=== PATIENT | male | born 1975 | race Asian ===

== ENCOUNTER 2017-06-26 19:38 | Emergency (ER) | payer OTHER ==
[2017-06-26 22:03] LABS: INFLUENZA A PATIENT NEGATIVE (NEGATIVE); INFLUENZA B PATIENT NEGATIVE (NEGATIVE); OBC FLU VALID
[2017-06-27 08:57] LABS: NEGATIVE OBC STREP NEG; POSITIVE OBC STREP POS
== END 2017-06-26 22:31 | disposition home or self-care (01) ==
LOC: ER 19:38
DX: J06.9 Acute upper respiratory infection, unspecified (principal); L30.9 Dermatitis, unspecified; Z87.891 Personal history of nicotine dependence
CPT/HCPCS: 87070; 87804; 87804-59; 87880; 99284

== ENCOUNTER 2019-12-27 15:55 | Emergency (ER) | payer OTHER ==
[~2019-12-27] VITALS: Ht 160 cm; Wt 63.6 kg
[~2019-12-27 15:55] MED LIST: CLIN150C14 PO; TRIA15OI TP
[2019-12-27 17:28] VITALS: BP 160/79
[2019-12-27] MEDS ORDERED: LIDO:MAALOX 1:1 20 ML SINGLE DOSE. ONE (17:34)
[2019-12-27] MEDS ORDERED: LIDO:MAALOX 1:1 20 ML SINGLE DOSE. SWSW ONE (17:45)
--- NOTE | 2019-12-27 17:55 | PHYS DOC ---
Past Medical History Past Medical History: No Pertinent History Past Surgical History: No Surgical History Smoking Status: Former Smoker Alcohol Use: None Drug Use: None General Adult EDM: Chief Complaint: ABDOMINAL PAIN HPI: HPI: Patient is a 44 year old male who presents to the emergency department with co mplaints of epigastric abdominal pain, nausea, and a sore throat after taking Flagyl today. Patient was seen at yesterday and diagnosed with having anxiety. A few days prior to that he was seen at and he was diagnosed with constipation and diverticulitis. Patient states that he has been taking Flagyl and MiraLAX that were prescribed to him for those conditions. He denies any chest pain, shortness of breath, vomiting, diarrhea, hematuria, dysuria, body aches, fatigue, fever, or cough. He reports that he feels nauseated after taking the Flagyl. Patient states that his last bowel movement was this morning. He denies any medical or surgical history Review of Systems: Review of Systems: Constitutional: Denies fever or chills. [] HENT: See HPI Respiratory: Denies cough or shortness of breath. [] Cardiovascular: Denies chest pain or edema. [] GI: See HPI : Denies dysuria. [] Musculoskeletal: Denies back pain or joint pain. [] Integument: Denies rash. [] Neurologic: Denies headache, Psychiatric: Denies depression or anxiety. [] Heart Score: Risk Factors: Risk Factors: DM, Current or recent (<one month) smoker, HTN, HLP, family history of CAD, obesity. Risk Scores: Score 0 - 3: 2.5% MACE over next 6 weeks - Discharge Home Score 4 - 6: 20.3% MACE over next 6 weeks - Admit for Clinical Observation Score 7 - 10: 72.7% MACE over next 6 weeks - Early Invasive Strategies Current Medications: Current Medications Medications (Trade) Dose Ordered Sig/Yonny Start Time Stop Time Status Last Admin Dose Admin Multi-Ingredient Mouthwash/Gargle (Gi Cocktail) 20 ml STK-MED ONCE 12/27/19 17:34 12/27/19 17:34 DC Allergies: Allergies: Allergies Coded Allergies Type Severity Reaction Last Updated Verified No Known Drug Allergies 06/26/17 No Physical Exam: PE: Constitutional: Well developed, well nourished, no acute distress, non-toxic appearance. [] HENT: Normocephalic, atraumatic, bilateral external ears normal, nose normal. [] Eyes: PERRLA, EOMI, conjunctiva normal, no discharge. [] Neck: Normal range of motion, no stridor. [] Cardiovascular:Heart rate regular rhythm Lungs & Thorax: Respirations even and unlabored, no retractions, no respiratory distress, lungs CTA Abdomen: soft, no rebound tenderness, no guarding, epigastric tenderness to palpation Skin: Warm, dry, no erythema, no rash. [] Extremities: No cyanosis, ROM intact, no edema. [] Neurologic: Alert and oriented X 3, no focal deficits noted. [] Psychologic: Affect normal, judgement normal, mood normal. [] Current Patient Data: Vital Signs: Vital Signs Date Time Temp Pulse Resp B/P (MAP) Pulse Ox O2 Delivery O2 Flow Rate FiO2 12/27/19 17:28 98.5 94 20 160/79 (106) 100 Room Air 98.5 EKG: EKG: [] Radiology/Procedures: Radiology/Procedures: [] Course & Med Decision Making: Course & Med Decision Making Pertinent Labs and Imaging studies reviewed. (See chart for details) Patient is a 44-year-old male who presents to the emergency department. Patient only speaks Sinhala therefore the [employer] chief green officer line was used to discuss with the patient. The patient was given a GI cocktail and reported feeling better after the medication. The patient declined any further evaluation and treatment. The patient stated he wanted to go home after taking the medication and feeling better. I advised the patient that he needs to take the Flagyl with food and I recommend that he eats a bland diet, avoids alcohol, spicy foods, and acidic foods. Encouraged the patient to follow-up with his primary care doctor. Return to the emergency room if symptoms worsen. Patient verbalized an understanding of home care, medications, follow-up, and return to ED instructions and was in agreement with the plan of care. [] Dragon Disclaimer: Dragon Disclaimer: This electronic medical record was generated, in whole or in part, using a voice recognition dictation system. Departure Departure Impression: Primary Impression: Epigastric pain Additional Impression: Nausea alone Disposition: HOME, SELF-CARE Condition: STABLE Referrals: FAINA MARIE MD (PCP) Patient Instructions: Nausea, Adult, [id number] Additional Instructions: Do not take your antibiotic on an empty stomach. I recommend that you follow a bland diet. Follow-up with your primary care doctor for reevaluation in 1 to 2 days, return to the ER if symptoms worsen. Justicifation of Admission Dx: Justifications for Admission: Justification of Admission Dx: N/A ROCIO MURPHY APRN Dec 27, 2019 17:55
== END 2019-12-27 18:00 | disposition home or self-care (01) ==
LOC: ER 15:55
DX: R10.13 Epigastric pain (principal); R11.0 Nausea; Z87.891 Personal history of nicotine dependence
CPT/HCPCS: 99282

== ENCOUNTER 2019-12-29 00:35 | Emergency (ER) | payer OTHER ==
[~2019-12-29] VITALS: Ht 154.9 cm; Wt 59.1 kg
[2019-12-29 01:24] LABS: BILIRUBIN,URINE NEGATIVE (NEG); CLARITY,URINE CLEAR; COLOR,URINE YELLOW; NITRITE,URINE NEGATIVE (NEG); PH,URINE 6.5 (<5.0-8.0); PROTEIN,URINE NEGATIVE (NEG-TRACE); UROBILINOGEN,URINE 0.2 mg/dL (0.2 mg/dL)
[2019-12-29] MEDS: IV NORMAL SALINE 1000ML BAG 1,000 ML IV SCH (01:31)
[2019-12-29 01:32] LABS: BACTERIA,URINE 0 /HPF (0-FEW); RBC,URINE 0 /HPF (0-2); WBC,URINE OCC /HPF (0-4)
[2019-12-29 01:33] LABS: SQUAMOUS EPITHELIAL CELL,UR OCC /LPF
[2019-12-29 01:38] LABS: BASO % 1 % (0-3); EOS # 0.3 x10^3/uL (0.0-0.7); EOS % 3 % (0-3); HEMATOCRIT 39.4 % (39.0-53.0); HEMOGLOBIN 13.5 g/dL (13.0-17.5); LYMPH # 1.9 x10^3/uL (1.0-4.8); LYMPH % 21 % (24-48); MEAN CORPUSCULAR HEMOGLOBIN 27 pg (25-35); MEAN CORPUSCULAR HGB CONC 34 g/dL (31-37); MEAN CORPUSCULAR VOLUME 79 fL (79-100); MONO # 0.6 x10^3/uL (0.0-1.1); MONO % 7 % (0-9); NEUT % 69 % (31-73); PLATELET COUNT 200 x10^3/uL (140-400); RED CELL DISTRIBUTION WIDTH 12.9 % (11.5-14.5); WHITE BLOOD COUNT 8.7 x10^3/uL (4.0-11.0)
[2019-12-29 01:48] LABS: CALCIUM 8.9 mg/dL (8.5-10.1); GFR 81.2
[2019-12-29 01:54] LABS: ALBUMIN 3.8 g/dL (3.4-5.0); TOTAL BILIRUBIN 0.5 mg/dL (0.2-1.0); TOTAL PROTEIN 7.7 g/dL (6.4-8.2)
--- NOTE | 2019-12-29 02:44 | PHYS DOC ---
Past Medical History Past Medical History: No Pertinent History Past Surgical History: No Surgical History Smoking Status: Former Smoker Alcohol Use: None Drug Use: None General Adult EDM: Chief Complaint: MULTIPLE COMPLAINTS HPI: HPI: Patient is a 44 year old male who presents with a several day history of feeling tremulous feeling very thirsty and urinating a lot. Patient also complains of some epigastric pain but no vomiting. No fevers cough or shortness of breath. Symptoms are better with drinking water but he persistently feels thirsty. Patient was seen at [facility] and was told there is nothing wrong us and is here for another opinion. [employer] phone was used for the interview. Pain in the epigastrium is described as burning and nonradiating Review of Systems: Review of Systems: Constitutional: Denies fever or chills. [] Eyes: Denies change in visual acuity. [] HENT: Complains of dry mouth Respiratory: Denies cough or shortness of breath. [] Cardiovascular: Denies chest pain or edema. [] GI: Complains of epigastric pain but no diarrhea no vomiting mild nausea : Denies dysuria. [] Musculoskeletal: Denies back pain or joint pain. [] Integument: Denies rash. [] Neurologic: Denies headache, focal weakness or sensory changes. [] Endocrine: Complains of polyuria and polydipsia Lymphatic: Denies swollen glands. [] Psychiatric: Denies depression or anxiety. [] Heart Score: Risk Factors: Risk Factors: DM, Current or recent (<one month) smoker, HTN, HLP, family history of CAD, obesity. Risk Scores: Score 0 - 3: 2.5% MACE over next 6 weeks - Discharge Home Score 4 - 6: 20.3% MACE over next 6 weeks - Admit for Clinical Observation Score 7 - 10: 72.7% MACE over next 6 weeks - Early Invasive Strategies Current Medications: Current Medications Medications (Trade) Dose Ordered Sig/Yonny Start Time Stop Time Status Last Admin Dose Admin Sodium Chloride 1,000 ml @ 1,000 mls/hr Q1H 12/29/19 01:30 12/29/19 02:29 DC 12/29/19 01:31 1,000 MLS/HR Allergies: Allergies: Allergies Coded Allergies Type Severity Reaction Last Updated Verified No Known Drug Allergies 06/26/17 No Physical Exam: PE: Constitutional: Well developed, well nourished, no acute distress, non-toxic appearance. [] HENT: Normocephalic, atraumatic, bilateral external ears normal, no trismus nose normal. [] Eyes: PERRLA, EOMI, conjunctiva normal, no discharge. [] Neck: Normal range of motion, no tenderness, supple, no stridor. [] Cardiovascular:Heart rate regular rhythm, peripheral pulses intact Lungs & Thorax: Bilateral breath sounds clear to auscultation [] Abdomen: , soft, mild epigastric tenderness without guarding or rebound no masses, no pulsatile masses. [] Skin: Warm, dry, no erythema, no rash. [] Back: No tenderness, no CVA tenderness. [] Extremities: No tenderness, no cyanosis, no clubbing, ROM intact, no edema. [] Neurologic: Alert and oriented X 3, normal motor function, normal sensory function, no focal deficits noted. [] Psychologic: Affect normal, judgement normal, mood normal. [] Current Patient Data: Labs: Laboratory Tests Test 12/29/19 00:35 12/29/19 01:28 12/29/19 01:51 Urine Collection Type Unknown Urine Color Yellow Urine Clarity Clear Urine pH 6.5 Urine Specific [place] <=1.005 Urine Protein Negative mg/dL Urine Glucose (UA) Negative mg/dL Urine Ketones (Stick) Negative mg/dL Urine Blood Negative Urine Nitrite Negative Urine Bilirubin Negative Urine Urobilinogen Dipstick 0.2 mg/dL Urine Leukocyte Esterase Negative Urine RBC 0 /HPF Urine WBC Occ /HPF Urine Squamous Epithelial Cells Occ /LPF Urine Bacteria 0 /HPF Urine Mucus Slight /LPF White Blood Count 8.7 x10^3/uL Red Blood Count 5.00 x10^6/uL Hemoglobin 13.5 g/dL Hematocrit 39.4 % Mean Corpuscular Volume 79 fL Mean Corpuscular Hemoglobin 27 pg Mean Corpuscular Hemoglobin Concent 34 g/dL Red Cell Distribution Width 12.9 % Platelet Count 200 x10^3/uL Neutrophils (%) (Auto) 69 % Lymphocytes (%) (Auto) 21 % Monocytes (%) (Auto) 7 % Eosinophils (%) (Auto) 3 % Basophils (%) (Auto) 1 % Neutrophils # (Auto) 6.0 x10^3/uL Lymphocytes # (Auto) 1.9 x10^3/uL Monocytes # (Auto) 0.6 x10^3/uL Eosinophils # (Auto) 0.3 x10^3/uL Basophils # (Auto) 0.0 x10^3/uL Sodium Level 136 mmol/L Potassium Level 3.0 mmol/L Chloride Level 102 mmol/L Carbon Dioxide Level 26 mmol/L Anion Gap 8 Blood Urea Nitrogen 3 mg/dL Creatinine 1.0 mg/dL Estimated GFR (Cockcroft-Gault) 81.2 BUN/Creatinine Ratio 3 Glucose Level 142 mg/dL Calcium Level 8.9 mg/dL Total Bilirubin 0.5 mg/dL Aspartate Amino Transf (AST/SGOT) 42 U/L Alanine Aminotransferase (ALT/SGPT) 38 U/L Alkaline Phosphatase 59 U/L Total Protein 7.7 g/dL Albumin 3.8 g/dL Albumin/Globulin Ratio 1.0 Lipase 250 U/L Glucose (Fingerstick) 134 mg/dL Current Medications Medications (Trade) Dose Ordered Sig/Yonny Route PRN Reason Start Time Stop Time Status Last Admin Dose Admin Sodium Chloride 1,000 ml @ 1,000 mls/hr Q1H IV 12/29/19 01:30 12/29/19 02:29 DC 12/29/19 01:31 Potassium Chloride (Klor-Con) 40 meq 1X ONCE PO 12/29/19 03:00 12/29/19 03:01 DC 12/29/19 03:13 Laboratory Tests Test 12/29/19 00:35 12/29/19 01:28 12/29/19 01:51 Urine Collection Type Unknown Urine Color Yellow Urine Clarity Clear Urine pH 6.5 (<5.0-8.0) Urine Specific [place] <=1.005 (1.000-1.030) Urine Protein Negative mg/dL (NEG-TRACE) Urine Glucose (UA) Negative mg/dL (NEG) Urine Ketones (Stick) Negative mg/dL (NEG) Urine Blood Negative (NEG) Urine Nitrite Negative (NEG) Urine Bilirubin Negative (NEG) Urine Urobilinogen Dipstick 0.2 mg/dL (0.2 mg/dL) Urine Leukocyte Esterase Negative (NEG) Urine RBC 0 /HPF (0-2) Urine WBC Occ /HPF (0-4) Urine Squamous Epithelial Cells Occ /LPF Urine Bacteria 0 /HPF (0-FEW) Urine Mucus Slight /LPF White Blood Count 8.7 x10^3/uL (4.0-11.0) Red Blood Count 5.00 x10^6/uL (4.30-5.70) Hemoglobin 13.5 g/dL (13.0-17.5) Hematocrit 39.4 % (39.0-53.0) Mean Corpuscular Volume 79 fL (79-100) Mean Corpuscular Hemoglobin 27 pg (25-35) Mean Corpuscular Hemoglobin Concent 34 g/dL (31-37) Red Cell Distribution Width 12.9 % (11.5-14.5) Platelet Count 200 x10^3/uL (140-400) Neutrophils (%) (Auto) 69 % (31-73) Lymphocytes (%) (Auto) 21 % (24-48) L Monocytes (%) (Auto) 7 % (0-9) Eosinophils (%) (Auto) 3 % (0-3) Basophils (%) (Auto) 1 % (0-3) Neutrophils # (Auto) 6.0 x10^3/uL (1.8-7.7) Lymphocytes # (Auto) 1.9 x10^3/uL (1.0-4.8) Monocytes # (Auto) 0.6 x10^3/uL (0.0-1.1) Eosinophils # (Auto) 0.3 x10^3/uL (0.0-0.7) Basophils # (Auto) 0.0 x10^3/uL (0.0-0.2) Sodium Level 136 mmol/L (136-145) Potassium Level 3.0 mmol/L (3.5-5.1) L Chloride Level 102 mmol/L (98-107) Carbon Dioxide Level 26 mmol/L (21-32) Anion Gap 8 (6-14) Blood Urea Nitrogen 3 mg/dL (8-26) L Creatinine 1.0 mg/dL (0.7-1.3) Estimated GFR (Cockcroft-Gault) 81.2 BUN/Creatinine Ratio 3 (6-20) L Glucose Level 142 mg/dL (70-99) H Calcium Level 8.9 mg/dL (8.5-10.1) Total Bilirubin 0.5 mg/dL (0.2-1.0) Aspartate Amino Transferase (AST) 42 U/L (15-37) H Alanine Aminotransferase (ALT) 38 U/L (16-63) Alkaline Phosphatase 59 U/L (46-116) Total Protein 7.7 g/dL (6.4-8.2) Albumin 3.8 g/dL (3.4-5.0) Albumin/Globulin Ratio 1.0 (1.0-1.7) Lipase 250 U/L (73-393) Glucose (Fingerstick) 134 mg/dL (70-99) H Laboratory Tests 12/29/19 01:28 Laboratory Tests 12/29/19 01:28 Vital Signs: Vital Signs Date Time Temp Pulse Resp B/P (MAP) Pulse Ox O2 Delivery O2 Flow Rate FiO2 12/29/19 01:00 98.4 82 166/93 (117) 99 Room Air 98.4 Vital Signs Date Time Temp Pulse Resp B/P (MAP) Pulse Ox O2 Delivery O2 Flow Rate FiO2 12/29/19 01:00 98.4 82 166/93 (117) 99 Room Air 98.4 EKG: EKG: [] Radiology/Procedures: Radiology/Procedures: [] Course & Med Decision Making: Course & Med Decision Making Pertinent Labs and Imaging studies reviewed. (See chart for details) [] 44-year-old male with multiple vague complaints. Work-up is reassuring other than mild hypokalemia. Patient is clinically stable. Patient given referral to back to his primary care physician for further evaluation and treatment. Abdominal exam is soft and nonsurgical. Dragon Disclaimer: Dragon Disclaimer: This electronic medical record was generated, in whole or in part, using a voice recognition dictation system. Departure Departure Impression: Primary Impression: Hypokalemia Additional Impression: Epigastric pain Disposition: HOME, SELF-CARE Condition: STABLE Referrals: FAINA MARIE MD (PCP) 2-3 DAYS Patient Instructions: Hypokalemia Additional Instructions: EMERGENCY DEPARTMENT GENERAL DISCHARGE INSTRUCTIONS THANK YOU for coming to [facility] Emergency Department (ED) today and trusting us with your care. We trust that you had a positive experience in our Emergency Department. If you wish to speak to the department Management you can contact the religion department chair at . YOUR FOLLOW UP INSTRUCTIONS ARE FOLLOWS: Do you have a private doctor? If you do not have a private doctor, please ask for a resource list of physicians or clinics that may be able to assist you with follow up care. The Emergency Physician has interpreted your x-rays. The X-ray specialist will also review them. If there is a change in the findings you will be notified in 48 hours when at all possible. A lab test or lab culture may have been done, your results will be reviewed and you will be notified if you need a change in treatment. ADDITIONAL INSTRUCTIONS AND INFORMATION Your care today has been supervised by a physician who is specially trained in emergency care. Many problems require more than one evaluation for a complete diagnosis and treatment. We recommend that you schedule your follow up appointment as recommended to ensure complete treatment of your illness or injury. If you are unable to obtain follow up care and continue to have a problem, or if your condition worsens we recommend that you return to the ED. We are not able to safely determine your condition over the phone nor are we able to give sound medical advice over the phone. For these safety reasons, if you call for medical advice we will ask you to come to the ED for further evaluation If you have any questions regarding these discharge instructions please call the ED at . SAFETY INFORMATION In the interest of safety, wellness, and injury prevention; we encourage you to wear your seatbelt, if you smoke; quit smoking, and we encourage your family to use protective helmet for bicycling and other sporting events that present an increased risk for head injury. IF YOUR SYMPTOMS WORSEN OR NEW SYMPTOMS DEVELOP, OR YOU HAVE CONCERNS ABOUT YOUR CONDITION; OR IF YOUR CONDITION WORSENS WHILE YOU ARE WAITING FOR YOUR FOLLOW UP APPOINTMENT; EITHER CONTACT YOUR PRIMARY CARE DOCTOR, THE PHYSICIAN WHOSE NAME AND NUMBER YOU WERE GIVEN, OR RETURN TO THE ED IMMEDIATELY. Justicifation of Admission Dx: Justifications for Admission: Justification of Admission Dx: N/A MAGGIE RANGEL MD Dec 29, 2019 02:44
[2019-12-29 03:02] VITALS: BP 133/84
[2019-12-29] MEDS: POTASSIUM CHLORIDE 20 MEQ TABLET.ER. PO ONE (03:13)
== END 2019-12-29 03:25 | disposition home or self-care (01) ==
LOC: ER 00:35
DX: E87.6 Hypokalemia (principal); R10.13 Epigastric pain; R35.8 Other polyuria; R63.1 Polydipsia
CPT/HCPCS: 36415; 80053; 81001; 82962; 83690; 85025; 96360; 99285; J7030